=== PATIENT | male | born 1970 ===

== ENCOUNTER 2019-09-17 14:31 | Emergency (ER) | payer SELFPAY ==
[2019-09-17] VITALS (7 sets, daily range): BP systolic 125–136; BP diastolic 76–90
[~2019-09-17] VITALS: Ht 170.2 cm; Wt 74.8 kg
--- NOTE | 2019-09-17 14:40 | Emergency Room Report ---
History of Present Illness General Chief Complaint: Seizure Source: EMS Present Illness HPI 49-year approximate-old male unknown medical history possible history of seizures, currently no ID, had witnessed convulsions on the bus, duration less than a minute, alleviated with Ativan/Versed, no known aggravating factors, severity was severe, patient presents via EMS for evaluation of seizure patient is unable to give a history currently sedated, glucose in the field was greater than the 80s Allergies: Coded Allergies: UNABLE TO ASSESS (Unverified , 09/17/19) Patient History Limited by: medical condition - Currently sedated from Ativan and Versed Past Medical History: see triage record Reviewed Nursing Documentation: PMH: Agreed; PSxH: Agreed Nursing Documentation-PMH Past Medical History Deferred: Patient Unconscious Review of Systems All Other Systems: limited - Sedated Physical Exam Vital Signs Date Time Temp Pulse Resp B/P (MAP) Pulse Ox O2 Delivery O2 Flow Rate FiO2 09/17/19 14:26 150 22 161/91 (114) 95 Non-Rebreather Sp02 EP Interpretation: reviewed, normal General Appearance: non-toxic, other - Sedated Head: normocephalic, atraumatic Eyes: bilateral eye PERRL, bilateral eye EOMI ENT: uvula midline, moist mucus membranes Neck: supple, thyroid normal, supple/symm/no masses Respiratory: lungs clear, no respiratory distress, no retraction, no accessory muscle use Cardiovascular #1: normal peripheral pulses, regular rate, rhythm, no edema, no gallop, no murmur Gastrointestinal: non tender, soft, no guarding, no rebound Musculoskeletal: normal inspection Neurologic: responsive, other - sedated Psychiatric: other - sedated Skin: no rash, warm/dry Medical Decision Making Diagnostic Impression: Primary Impression: Epileptic seizure, generalized Additional Impression: Brain bleed ER Course Patient with seizures, will start Keppra, frontal diagnosis includes epilepsy, brain bleed, brain mass Patient with possible left frontal extraaxial bleed versus meningioma Reevaluation at 6:13 PM, patient is still confused but states he is never had seizures before Spoke with Dr. Phuong CALDERON at 6:40pm accepted patient Patient to be transferred to [facility] remains NPO Reevaluation 7:26 PM, patient remains altered only asking for water We will transfer to [facility] Laboratory Tests Test 09/17/19 15:00 09/17/19 15:10 White Blood Count 11.5 K/UL (4.8-10.8) H Red Blood Count 4.21 M/UL (4.70-6.10) L Hemoglobin 12.4 G/DL (14.2-18.0) L Hematocrit 40.8 % (42.0-52.0) L Mean Corpuscular Volume 97 FL (80-99) Mean Corpuscular Hemoglobin 29.6 PG (27.0-31.0) Mean Corpuscular Hemoglobin Concent 30.5 G/DL (32.0-36.0) L Red Cell Distribution Width 14.8 % (11.6-14.8) Platelet Count 202 K/UL (150-450) Mean Platelet Volume 9.5 FL (6.5-10.1) Neutrophils (%) (Auto) 79.3 % (45.0-75.0) H Lymphocytes (%) (Auto) 14.7 % (20.0-45.0) L Monocytes (%) (Auto) 4.3 % (1.0-10.0) Eosinophils (%) (Auto) 0.3 % (0.0-3.0) Basophils (%) (Auto) 1.5 % (0.0-2.0) Sodium Level 143 MMOL/L (136-145) Potassium Level 4.3 MMOL/L (3.5-5.1) Chloride Level 101 MMOL/L (98-107) Carbon Dioxide Level 6 MMOL/L (21-32) *L Anion Gap 36 mmol/L (5-15) H Blood Urea Nitrogen 17 mg/dL (7-18) Creatinine 1.3 MG/DL (0.55-1.30) Estimate Glomerular Filtration Rate 58.4 mL/min (>60) Glucose Level 118 MG/DL (74-106) H Calcium Level 9.5 MG/DL (8.5-10.1) Total Bilirubin 1.0 MG/DL (0.2-1.0) Aspartate Amino Transferase (AST) 237 U/L (15-37) H Alanine Aminotransferase (ALT) 102 U/L (12-78) H Alkaline Phosphatase 187 U/L (46-116) H Total Protein 8.7 G/DL (6.4-8.2) H Albumin 4.6 G/DL (3.4-5.0) Globulin 4.1 g/dL Albumin/Globulin Ratio 1.1 (1.0-2.7) Salicylates Level 2.7 ug/mL (2.8-20) L Acetaminophen Level < 2 MCG/ML (10-30) L Phenytoin (Dilantin) Level < 0.5 ug/mL (10-20) L Valproic Acid Level < 3 MCG/ML (50-100) L Carbamazepine (Tegretol) Level < 2.0 ug/mL (4.0-12.0) L Phenobarbital Level < 1.0 ug/mL (15-40) L Serum Alcohol < 3 mg/dL Urine Color Pale yellow Urine Appearance Clear Urine pH 5 (4.5-8.0) Urine Specific [place] 1.025 (1.005-1.035) Urine Protein 3+ (NEGATIVE) H Urine Glucose (UA) Negative (NEGATIVE) Urine Ketones 4+ (NEGATIVE) H Urine Blood 5+ (NEGATIVE) H Urine Nitrite Negative (NEGATIVE) Urine Bilirubin Negative (NEGATIVE) Urine Urobilinogen Normal MG/DL (0.0-1.0) Urine Leukocyte Esterase Negative (NEGATIVE) Urine RBC 5-10 /HPF (0 - 0) H Urine WBC 2-4 /HPF (0 - 0) Urine Squamous Epithelial Cells None /LPF (NONE/OCC) Urine Amorphous Sediment Few /LPF (NONE) H Urine Bacteria Few /HPF (NONE) Urine Opiates Screen Negative (NEGATIVE) Urine Barbiturates Screen Negative (NEGATIVE) Phencyclidine (PCP) Screen Negative (NEGATIVE) Urine Amphetamines Screen Negative (NEGATIVE) Urine Benzodiazepines Screen Positive (NEGATIVE) H Urine Cocaine Screen Negative (NEGATIVE) Urine Marijuana (THC) Screen Negative (NEGATIVE) EKG Diagnostic Results EKG Time: 14:40 EP Interpretation: Sinus tachycardia, rate 161, QTc 402, normal axis Rhythm Strip Diag. Results Rhythm Strip Time: 14:46 EP Interpretation: yes Rate: 164 Rhythm: other - Sinus Tachycardia Chest X-Ray Diagnostic Results Chest X-Ray Diagnostic Results : Chest X-Ray Ordered: Yes # of Views/Limited/Complete: 1 View Indication: Other - seizures Interpretation: no consolidation, no effusion, no pneumothorax, no acute cardiopulmonary disease Impression: No acute disease Electronically Signed by: Law Valadez Md Other X-Ray Diagnostic Results Other X-Ray Diagnostic Results : X-Ray ordered: Shuntogra # of Views/Limited Vs Complete: 3 View Indication: Other - eval shunt EP Interpretation: Yes Interpretation: other - shunt intact Impression: Other - shunt intact Electronically Signed by: Law Valadez MD CT/MRI/US Diagnostic Results CT/MRI/US Diagnostic Results : Impression Final Report History: SZ Exam: XR OTHER - SHUNTOGRAM Comparison: None available IMPRESSION: 3 images Segment of the shunt is not visualized at the upper calvarium as well as at the lower chest. Visualized segments of the catheter appear continuous without kinking. The tip is seen at the left lateral abdomen. Gaseous prominence of the stomach Radiologist: Raoul Concepcion M.D. Electronically Signed: 09/17/19 19:01 Study ready at 18:32 and initial results transmitted at 19:01 Procedure: CT Head no Contrast Indications: Witnessed seizure x3 in bus an ambulance, altered mental status Technique: Spiral acquisitions obtained through the brain. Angled axial and coronal 5 x 5 mm slices were reconstructed. Total dose length product 1377 mGycm. CTDI vol(s) 60 mGy. Dose reduction achieved using automated exposure control Comparison: None. Findings: There is a left-sided ventriculoperitoneal shunt. Tubing traverses the left frontal lobe, enters the frontal horn of the left lateral ventricle, tip projected beyond the lateral margin of the frontal horn in the anterior limb of the internal capsule. There is generalized ventriculomegaly. There is mild enlargement of the extra-axial CSF spaces. There is a small extra-axial lentiform focus of hyperattenuation in the anterior inferior aspect of the right anterior fossa this measures 22 x 23 mm orthogonal long axis dimension, by 9 mm in thickness. There is some encephalomalacia of the bilateral anterior frontal lobes. There is encephalomalacia of the bilateral anterior temporal lobes there is evidence of an old right frontal ventriculostomy. The remainder of the calvarium is intact. Visualized orbits and sinuses are unremarkable Impression: 22 x 23 x 9 mm hyperattenuating right frontal extra-axial lesion. Most likely a small meningioma, but the possibility that this could represent a small extra-axial hematoma should also be considered. Left-sided ventriculoperitoneal shunt. Ventriculomegaly is probably due to underlying central chronic volume loss as well as peripheral encephalomalacia, but the possibility of shunt malfunction should also be considered Areas of encephalomalacia, as described, consistent with prior insults, either ischemic or traumatic Findings discussed by phone with Dr. Valadez in the emergency room at the time of interpretation The CT scanner at [facility] is accredited by the [employer] and the scans are performed using protocols designed to limit radiation exposure to as low as reasonably achievable to attain images of sufficient resolution adequate for diagnostic evaluation. Dictated By: Raoul Hyde MD Electronically Signed By: Raoul Hyde MD Signed Date/Time 09/17/19 1611 CC: Law Valadez MD Last Vital Signs Date Time Temp Pulse Resp B/P (MAP) Pulse Ox O2 Delivery O2 Flow Rate FiO2 09/17/19 14:26 150 22 161/91 (114) 95 Non-Rebreather Disposition: XFER SHT-TRM HOSP Condition: Serious Law Valadez MD Sep 17, 2019 14:40
[2019-09-17] MEDS ORDERED: D5NS 1,000 ML IV ONE (14:45)
[2019-09-17] MEDS ORDERED: levETIRAcetam 1,000mg/NS100ml 100 ML IVPB ONE (14:45)
[2019-09-17 15:25] LABS: APPEARANCE,URINE CLEAR; BILIRUBIN, URINE NEGATIVE (NEGATIVE); COLOR,URINE PALE YELLOW; GLUCOSE, URINE (UA) NEGATIVE (NEGATIVE); KETONES,URINE 4+ (NEGATIVE); LEUKOCYTE ESTERASE ,URINE NEGATIVE (NEGATIVE); NITRITE,URINE NEGATIVE (NEGATIVE); PH,URINE 5 (4.5-8.0); PROTEIN,URINE 3+ (NEGATIVE); UROBILINOGEN,URINE NORMAL MG/DL (0.0-1.0)
[2019-09-17 15:45] LABS: BASOPHILS % (AUTO) 1.5 % (0.0-2.0); EOSINOPHILS % (AUTO) 0.3 % (0.0-3.0); HEMATOCRIT 40.8 % (42.0-52.0); HEMOGLOBIN 12.4 G/DL (14.2-18.0); LYMPHOCYTES % (AUTO) 14.7 % (20.0-45.0); MEAN CORPUSCULAR VOLUME 97 FL (80-99); MONOCYTES % (AUTO) 4.3 % (1.0-10.0); NEUTROPHILS % (AUTO) 79.3 % (45.0-75.0); PLATELET COUNT 202 K/UL (150-450); RED BLOOD COUNT 4.21 M/UL (4.70-6.10); RED CELL DISTRIBUTION WIDTH 14.8 % (11.6-14.8); WHITE BLOOD COUNT 11.5 K/UL (4.8-10.8)
[2019-09-17 15:58] LABS: ALANINE AMINOTRANSFERASE 102 U/L (12-78); ALBUMIN 4.6 G/DL (3.4-5.0); ALBUMIN/GLOBULIN RATIO 1.1 (1.0-2.7); ALKALINE PHOSPHATASE 187 U/L (46-116); ANION GAP 36 mmol/L (5-15); ASPARTATE AMINO TRANSFERASE 237 U/L (15-37); BLOOD UREA NITROGEN 17 mg/dL (7-18); CALCIUM 9.5 MG/DL (8.5-10.1); CHLORIDE 101 MMOL/L (98-107); CREATININE 1.3 MG/DL (0.55-1.30); POTASSIUM 4.3 MMOL/L (3.5-5.1); SODIUM 143 MMOL/L (136-145)
[2019-09-17 16:00] LABS: CARBON DIOXIDE 6 MMOL/L (21-32)
--- NOTE | 2019-09-17 16:05 | Diagnostic Imaging Report ---
Indication: Chest pain Technique: One view of the chest Comparison: none Findings: Lungs and pleural spaces are clear. Heart size is normal. Impression: No acute process
--- NOTE | 2019-09-17 16:16 | Diagnostic Imaging Report ---
Indications: Witnessed seizure x3 in bus an ambulance, altered mental status Technique: Spiral acquisitions obtained through the brain. Angled axial and coronal 5 x 5 mm slices were reconstructed. Total dose length product 1377 mGycm. CTDI vol(s) 60 mGy. Dose reduction achieved using automated exposure control Comparison: None. Findings: There is a left-sided ventriculoperitoneal shunt. Tubing traverses the left frontal lobe, enters the frontal horn of the left lateral ventricle, tip projected beyond the lateral margin of the frontal horn in the anterior limb of the internal capsule. There is generalized ventriculomegaly. There is mild enlargement of the extra-axial CSF spaces. There is a small extra-axial lentiform focus of hyperattenuation in the anterior inferior aspect of the right anterior fossa this measures 22 x 23 mm orthogonal long axis dimension, by 9 mm in thickness. There is some encephalomalacia of the bilateral anterior frontal lobes. There is encephalomalacia of the bilateral anterior temporal lobes there is evidence of an old right frontal ventriculostomy. The remainder of the calvarium is intact. Visualized orbits and sinuses are unremarkable Impression: 22 x 23 x 9 mm hyperattenuating right frontal extra-axial lesion. Most likely a small meningioma, but the possibility that this could represent a small extra-axial hematoma should also be considered. Left-sided ventriculoperitoneal shunt. Ventriculomegaly is probably due to underlying central chronic volume loss as well as peripheral encephalomalacia, but the possibility of shunt malfunction should also be considered Areas of encephalomalacia, as described, consistent with prior insults, either ischemic or traumatic Findings discussed by phone with Dr. Valadez in the emergency room at the time of interpretation The CT scanner at [facility] is accredited by the [employer] and the scans are performed using protocols designed to limit radiation exposure to as low as reasonably achievable to attain images of sufficient resolution adequate for diagnostic evaluation.
--- NOTE | 2019-09-17 19:02 | Diagnostic Imaging Report ---
History: SZ Exam: XR OTHER - SHUNTOGRAM Comparison: None available IMPRESSION: 3 images Segment of the shunt is not visualized at the upper calvarium as well as at the lower chest. Visualized segments of the catheter appear continuous without kinking. The tip is seen at the left lateral abdomen. Gaseous prominence of the stomach
== END 2019-09-17 20:27 | disposition short-term general hospital (02) ==
LOC: EDBD 14:31 → EMR 17:00
DX: G40.409 Other generalized epilepsy and epileptic syndromes, not intractable, without status epilepticus (principal); I61.9 Nontraumatic intracerebral hemorrhage, unspecified; Z98.2 Presence of cerebrospinal fluid drainage device
CPT/HCPCS: 36415; 70450; 71045; 75809; 80053; 80156; 80164; 80184; 80185; 80307; 81003; 85025; 85610; 85730; 96361; 96365; 96366; 96375; 99285; G0480; J1953; J7030